=== PATIENT | female | born 1995 ===

== ENCOUNTER → 2019-07-29 14:05 | Outpatient (BNVA) | payer MEDICAID, SELFPAY | PROVIDERS: Referring Provider Obstetrics & Gynecology; Visit Provider Obstetrics & Gynecology | DX: Z32.01 Encounter for pregnancy test, result positive (principal) | CPT/HCPCS: 81025 ==

== ENCOUNTER → 2019-08-04 10:56 | Outpatient (BNVA) | payer MEDICAID, SELFPAY | PROVIDERS: Visit Provider Nurse Practitioner Women's Health | DX: Z34.02 Encounter for supervision of normal first pregnancy, second trimester (principal); Z3A.15 15 weeks gestation of pregnancy | CPT/HCPCS: 80307; 84315; 85027; 86592; 86762; 86803; 86850; 86900; 87086; 87340; 87806 ==

== ENCOUNTER → 2019-08-08 14:30 | Outpatient (BNVA) | payer MEDICAID, SELFPAY | PROVIDERS: Visit Provider Obstetrics & Gynecology | DX: Z34.02 Encounter for supervision of normal first pregnancy, second trimester (principal) | CPT/HCPCS: 84315; 87491; 87591 ==

== ENCOUNTER → 2019-09-05 12:58 | Outpatient (BNVA) | payer MEDICAID, SELFPAY | PROVIDERS: Referring Provider Obstetrics & Gynecology; Visit Provider Obstetrics & Gynecology | DX: Z36.89 Encounter for other specified antenatal screening (principal); Z3A.21 21 weeks gestation of pregnancy | CPT/HCPCS: 76805 ==

== ENCOUNTER → 2019-09-07 08:41 | Outpatient (BNVA) | payer MEDICAID, SELFPAY | PROVIDERS: Visit Provider Obstetrics & Gynecology | DX: Z34.02 Encounter for supervision of normal first pregnancy, second trimester (principal); O99.89 Other specified diseases and conditions complicating pregnancy, childbirth and the puerperium; Z28.3 Underimmunization status; Z04.89 Encounter for examination and observation for other specified reasons | CPT/HCPCS: 81000 ==

== ENCOUNTER → 2019-10-03 15:34 | Outpatient (BNVA) | payer MEDICAID, SELFPAY | PROVIDERS: Visit Provider Obstetrics & Gynecology | DX: Z34.90 Encounter for supervision of normal pregnancy, unspecified, unspecified trimester (principal) | CPT/HCPCS: 81000 ==

== ENCOUNTER → 2019-10-31 14:35 | Outpatient (BNVA) | payer MEDICAID, SELFPAY | PROVIDERS: Visit Provider Obstetrics & Gynecology | DX: Z34.02 Encounter for supervision of normal first pregnancy, second trimester (principal); Z04.89 Encounter for examination and observation for other specified reasons; G93.89 Other specified disorders of brain; Z28.3 Underimmunization status; O99.89 Other specified diseases and conditions complicating pregnancy, childbirth and the puerperium; O35.0XX0 Maternal care for (suspected) central nervous system malformation in fetus, not applicable or unspecified | CPT/HCPCS: 81000; 82950; 85027; 86787 ==

== ENCOUNTER → 2019-11-14 15:04 | Outpatient (BNVA) | payer MEDICAID, SELFPAY | PROVIDERS: Visit Provider Obstetrics & Gynecology | DX: Z34.02 Encounter for supervision of normal first pregnancy, second trimester (principal) | CPT/HCPCS: 81000 ==